=== PATIENT | female | born 1945 | race Caucasian/White ===

== ENCOUNTER → 2022-05-25 11:11 | Outpatient (CLI) | payer MEDICARE, SELFPAY ==
[2022-05-25 13:39] LABS: COVID19 -Nasal RAPID Negative (Negative)
== END ==
PROVIDERS: Referring Provider Orthopaedic Surgery; Visit Provider Orthopaedic Surgery
DX: Z20.822 Contact with and (suspected) exposure to COVID-19 (principal)
CPT/HCPCS: 87635; C9803

== ENCOUNTER 2022-05-27 12:02 | Day surgery (SDC) | payer MEDICARE, SELFPAY ==
[2022-05-20 08:46] VITALS: BMI 43.1
[2022-05-27] VITALS (12 sets, daily range): BP systolic 125–161; BP diastolic 63–75; PULSE 47–61; RESP 12–29; TEMP 35.6–36.8; O2SAT 95–99; BMI 43.1; BMI 44.1
--- NOTE | 2022-05-27 06:00 | DI.RAD.S_ITS ---
PROCEDURE: XR KNEE RT 1TO2V INDICATIONS: total right knee TECHNIQUE: 2 view(s) of the knee acquired. COMPARISON: None. FINDINGS: Bones: Patient is status post knee joint arthroplasty. Hardware components are in expected positions. Visualized bony structures are intact. Soft tissues: Overlying postoperative changes are noted. IMPRESSION: Right knee arthroplasty with expected postoperative changes. Dictated by: Chuck Ellis M.D. on 05/28/2022 at 8:52 Approved by: Chuck Ellis M.D. on 05/28/2022 at 8:53
[2022-05-27] MEDS: VANCOMYCIN 1,000 MG/200 ML PIGGYBACK 200 MG IV (13:18)
--- NOTE | 2022-05-27 14:22 | PM.PREOP ---
Pre-operative Note COVID-19 COVID-19 status: Negative Interval Note History & Physical reviewed/Exam performed by Physician: Yes Changes to H&P: No
[2022-05-27] MEDS: CEFAZOLIN 2 GM/100 ML PREMIX 100 ML IV ×2 (14:38→22:28)
--- NOTE | 2022-05-27 14:38 | PM.OP.1 ---
Operative Date/Time/Diagnoses Date of procedure: 05/27/22 Time of procedure: 14:40 Pre-op diagnosis: Right total knee arthroplasty Post-op diagnosis: same Procedure & Clinicians Procedure: Right total knee arthroplasty Same procedure as scheduled: Yes Indications: The patient has had progressively worsening right knee pain with radiographic changes consistent with arthritis. Non-operative management has failed and the patient has requested total knee replacement. The risks, benefits and alternatives to surgery were discussed with the patient prior to proceeding. Risks discussed included, but were not limited to, failure to relieve pain, stiffness, infection, nerve damage, deep venous thrombosis, pulmonary embolism, stroke, coma, heart attack, permanent paralysis and , as well as the potential need for eventual revision of the prosthetic. Surgeon: Triny Justice Marriage And Family Counselor: Amber Ritter Anesthesia Type: General and Spinal Operative Notes Findings: Severe right knee osteoarthritis, good range of motion, adequate stability, adequate bone Closure Type: primary Specimen(s): none sent Prosthetic devices, grafts, tissues, transplants, or devices: [employer] BCS 2 size 4 femur, size 4 tibia, +9 poly, 32 x 7.5 mm patella Applied: drain(s) Estimated Blood Loss (mL): 250 Blood products transfused: none Tourniquet time (min): 77 Procedure in detail: The patient was seen in the pre-operative area, where the patient identified the right knee as the operative site and this was marked with my initials. The patient received pre-operative antibiotics, and was taken to the operating room and placed on the operative table in the supine position. After satisfactory anesthesia, a time stamp assembler out was performed. The right leg was encircled with a tourniquet about the proximal thigh, and the leg was prepared from the toes to the tourniquet with ChloroPrep in the usual fashion and draped through sterile drapes. The leg was elevated and exsanguinated with Eschmark bandage and the tourniquet inflated to [250] mmHg pressure. The knee was approached through an approximately 20 cm incision centered over the patella and carried into the knee through a medial parapatellar arthrotomy. A portion of the medial and lateral meniscus was resected. Soft tissue was carefully mobilized around the patella the patella was measured with a caliper. Bone was resected from the patella and the patellar height was reconstituted with up an appropriate sized patellar component. A cover was then placed on the patella. A small amount of additional medial and lateral meniscus was resected. The distal femur was cut at 5?. A [+2] cut was used. It looked like an appropriate distal femoral cut and the cut was made without difficulty. An extramedullary guide was used for the tibial cut. 10 mm was resected off the least affected side.The tibia was prepared. The rotation was assessed. The patient was placed in extension residual medial and lateral meniscus as well as any residual bone was carefully resected. [No] additional tibia was resected. Hemostasis was achieved especially posteriorly. Additional local was injected into the posterior capsule. The extension gap was assessed and additional releases for gap balancing were performed as necessary. It was checked with the gap director occupational. The femoral component was trial was placed and the notch was finished. The rotation was assessed and the appropriate size femoral guide was placed on the distal femur and finishing cuts were made. There was no evidence of notching. The anterior, posterior and chamfer cuts were then made. The posterior osteophytes and soft tissues were then removed. The posterior capsule was injected with part of a mixture of 60 ml 0.25% Marcaine mixed with 20 ml Exparel for post operative pain control. The remainder of this mixture was injected into the capsule and subcutaneous tissues during cement curing. The tibial and femoral components were then placed and the knee placed through a range of motion. Range of motion was [0-130], with good stability throughout the range. The trials were then removed, and the tibia was finished. The bone was prepared with pulsatile lavage, and dried with a sponge. Cement was applied and the final prosthetics placed. Excess cement was removed during and after cement curing. A brief Betadine soak was performed. After confirming there was no extruded cement posteriorly, the final tibial insert was placed. The knee was copiously irrigated and the tourniquet deflated. Hemostasis was obtained with the Bovie cautery. A drain was placed and brought out superolaterally. The capsule was closed with interrupted nonabsorbable suture. The subcutaneous layer was closed with barbed sutures, and the skin with a running 3-0 V-Lock suture and skin ghassan. A daryl dressing was applied and the patient was taken to recovery having tolerated the procedure well. Complications: none Post-operative Condition: stable Disposition: Acute Care Plan for aftercare: The patient will be maintained on a standard total knee replacement protocol with weight bearing as tolerated. The patient will receive aspirin and sequential compression devices for DVT prophylaxis. The patient will be discharged home when safe for the home environment.
[2022-05-27] MEDS: TRANEXAMIC ACID 1,000 MG VIAL 2000 MG INJ ×2 (14:55→16:25)
--- NOTE | 2022-05-27 15:08 | SUR.OPER ---
Supine on padded OR bed. Pillow under head, arms secured on padded armboards <90 degree abduction. Safety belt across torso. Non-operative leg secured with tape over blanket over lower leg. Operative leg secured in DeMayo/Florentino/Nathe positioner. Foam padded brace at thigh of operative leg.
[2022-05-27] MEDS: CEFAZOLIN VIAL 1 GM in SODIUM CHLORIDE 0.9% 100 ML IV (15:15)
[2022-05-27] MEDS: BUPIVACAINE LIPOSOME 266 MG/20 ML VIAL INJ (15:16)
[2022-05-27] MEDS: LACTATED RINGERS 1,000 ML 42 ML IV (15:19)
[2022-05-27] MEDS: BUPIVACAINE 0.5% W/ EPI (PF) 30 ML VIAL INJ (15:21)
--- NOTE | 2022-05-27 17:45 | SUR.PHASEI ---
Report called to
--- NOTE | 2022-05-27 18:03 | SUR.PHASEI ---
Patient transferred to the floor on a bed with her walker, cane and belongings bag. Report given to Autumn. VS stable. IV saline locked. HV clamped, NICOLE dressing in place. Patient moving her right toes but denied sensation to her foot.
[2022-05-27] MEDS: ACETAMINOPHEN 325 MG TABLET 650 MG PO (18:18)
[2022-05-27] MEDS: LACTATED RINGERS 1,000 ML 100 ML IV (18:18)
[2022-05-27] MEDS: IBUPROFEN 400 MG TABLET PO ×2 (18:20→21:06)
[2022-05-27] MEDS: ATORVASTATIN 20 MG TABLET 40 MG PO (21:07)
[2022-05-27] MEDS: ASPIRIN EC 81 MG TABLET PO (21:07)
[2022-05-27] MEDS: DOCUSATE 100 MG CAPSULE PO (21:07)
[2022-05-28] MEDS: ACETAMINOPHEN 325 MG TABLET 650 MG PO ×3 (00:10→11:20)
[2022-05-28] MEDS: ONDANSETRON 4 MG/2 ML INJ IV (00:27)
[2022-05-28 01:00] VITALS: BP 136/61; PULSE 49; RESP 17; TEMP 36.3; O2SAT 98
[2022-05-28 04:00] VITALS: BP 163/55; PULSE 46; RESP 17; TEMP 36.2; O2SAT 99
[2022-05-28] MEDS: LACTATED RINGERS 1,000 ML 100 ML IV (05:46)
[2022-05-28] MEDS: LEVOTHYROXINE 100 MCG TABLET PO (05:53)
[2022-05-28] MEDS: CEFAZOLIN 2 GM/100 ML PREMIX 100 ML IV (06:30)
--- NOTE | 2022-05-28 07:57 | PM.DS.1 ---
History of Present Illness History of Present Illness Date Patient Seen: 05/28/22 Time Patient Seen: 07:57 Chief complaint: OPB Narrative: Operative Date/Time/Diagnoses Date of procedure: 05/27/22 Time of procedure: 14:40 Pre-op diagnosis: Right total knee arthroplasty Post-op diagnosis: same Procedure & Clinicians Procedure: Right total knee arthroplasty Same procedure as scheduled: Yes Indications: The patient has had progressively worsening right knee pain with radiographic changes consistent with arthritis. Non-operative management has failed and the patient has requested total knee replacement. The risks, benefits and alternatives to surgery were discussed with the patient prior to proceeding. Risks discussed included, but were not limited to, failure to relieve pain, stiffness, infection, nerve damage, deep venous thrombosis, pulmonary embolism, stroke, coma, heart attack, permanent paralysis and , as well as the potential need for eventual revision of the prosthetic. Surgeon: Triny Justice Flyer Maker: Amber Ritter Anesthesia Type: General and Spinal Operative Notes Findings: Severe right knee osteoarthritis, good range of motion, adequate stability, adequate bone Closure Type: primary Specimen(s): none sent Prosthetic devices, grafts, tissues, transplants, or devices: [employer] BCS 2 size 4 femur, size 4 tibia, +9 poly, 32 x 7.5 mm patella Applied: drain(s) Estimated Blood Loss (mL): 250 Blood products transfused: none Tourniquet time (min): 77 Discharge Providers Provider Discharge Date: 05/28/22 Primary care physician: Reina Granda MD Consults: 05/27/22 06:00 Consult to Anesthesiology Routine Comment: Consulting Provider: Anesthesiologist Reason for consultation: Regional block for post operative pain control 05/27/22 17:55 Consult to Discharge Planning Routine Comment: Consult to Physical Therapy Evaluate & Treat Comment: Physician Instructions: postop TKA protocol Consult to Respiratory Therapy Evaluate & Treat Comment: Physician Instructions: Evaluate and treat Discharge provider: Maira Serrano PA-C Summary Hospital Course Discharge Diagnosis: s/p RIGHT total knee arthroplasty Morbid obesity Hospital Course: Ms Lopez'carine hospital course was unremarkable. On POD# 1 she was feeling well and wanted to go home. She was eating and voiding without difficulty. She has her son and daughter for help at home and has outpt PT set up w/ [facility]. Her pain was well-controlled w/ oral medication. PT evaluated prior to discharge. Exam Vital Signs (past 8 hours): - 05/28/22 01:00 05/28/22 04:00 Temperature 97.4 F L 97.2 F L Pulse Rate 49 L 46 L Respiratory Rate 17 17 Blood Pressure 136/61 163/55 H Pulse Oximetry 98 99 Oxygen Flow Rate 0 0 Oxygen Delivery Method Room Air Oxygen Flow Rate 0 Narrative Exam Narrative: 5/5 strength in hip flexors, quadriceps, hamstrings, DF, PF, EHL on right. Sensation to light touch intact throughout RLE. Calves soft, compressible, nontender and without palpable cords or masses. NICOLE dressing w/ scant bloody drainage, intact and functioning. [facility] Medical History (Updated 05/20/22 @ 09:13 by Shannan Cerrato RN) HLD (hyperlipidemia) HTN (hypertension) Hypothyroidism Neuropathy Osteoarthritis Surgical History (Updated 05/28/22 @ 08:07 by Maira Serrano PA-C) History of hysterectomy (1992) History of nasal surgery Hx of abdominoplasty (1992) Hx of bariatric surgery (1986) Social History household members: children Smoking Status: Former smoker alcohol intake: never Discharge Assessment & Plan Assessment and Plan Assessment: s/p RIGHT total knee arthroplasty Morbid obesity Plan of Treatment: Discharge home, outpt PT, ASA 81 mg BID x 6 weeks for VTE prophylaxis. NPWT dressing d/t morbid obesity. Discharge Plan Discharge Plan Patient Disposition: Home Discharge orders & Medications Discharge Orders: Discharge (Order); Ordered 05/28/22 Ordered By: Maira Serrano Prescriptions: New oxycodone 5 mg Tablet 5 mg PO Q4H PRN (Reason: Pain, Moderate (4-6)) Qty: 60 0RF docusate sodium 100 mg Capsule 100 mg PO BID PRN (Reason: constipation) Qty: 60 2RF aspirin 81 mg Tablet,Delayed Release (Dr/Ec) 81 mg PO BID Qty: 90 0RF ibuprofen 400 mg Tablet 400 mg PO Q4HR PRN (Reason: mild pain (scale score 1-4)) Qty: 120 1RF Continued losartan 50 mg Tablet 100 mg PO QAM atorvastatin 40 mg Tablet 40 mg PO BEDTIME atenolol 100 mg Tablet 100 mg PO QAM acetaminophen 500 mg Tablet 1,000 mg PO BID levothyroxine 100 mcg Tablet 100 mcg PO DAILY Follow up/Referrals: Reina Granda MD [Primary Care Provider] - Triny Justice MD [Physician] - As previously scheduled (Follow up w/ Amber Ritter PA-C, on 06/09/2022 @ 2:40 pm at [facility] office in [place].) Diet/Activity/Treatments Diet: Diet as Tolerated Activity: Walk frequently! Cold/Heat Therapy: Ice to knee as needed for pain. Skin/Wound/Dressing Care Report to your healthcare provider any signs of infection, such as:: chills, fever, night sweats, unusual drainage and unusual redness Dressing: May shower with dressing on; may get battery pack wet, but keep out of direct shower spray. When batteries in 5-7 days, may detach and dispose of battery pack. Leave NICOLE dressing in place until follow up appointment. No bathing or otherwise soaking incision. Visit Report/Discharge Packet Instructions: DI for Knee Replacement Stand Alone Forms: Surgery Discharge Discharge Data Primary Care Provider: Reina Granda Attending Provider: Triny Justice Quality VTE Deep Vein Thrombosis/Pulmonary Embolism Present on Admission: No
[2022-05-28 08:30] VITALS: BP 136/46; PULSE 55; RESP 16; TEMP 36.6; O2SAT 99
[2022-05-28 08:46] LABS: Hematocrit 36.1 % (36-46); Hemoglobin 11.9 g/dL (12.0-16.0)
[2022-05-28 09:24] VITALS: BP 136/46; PULSE 55
[2022-05-28] MEDS: hydrOXYzine pamoate 25 MG CAPSULE PO (09:24)
[2022-05-28] MEDS: ASPIRIN EC 81 MG TABLET PO (09:24)
[2022-05-28] MEDS: LOSARTAN 50 MG TABLET 100 MG PO (09:24)
[2022-05-28] MEDS: DOCUSATE 100 MG CAPSULE PO (09:30)
[2022-05-28] MEDS: IBUPROFEN 400 MG TABLET PO (09:30)
--- NOTE | 2022-05-28 10:14 | PT.IIE ---
Current Diagnoses Unilateral primary osteoarthritis, right knee (05/27/22) Presence of unspecified artificial knee joint (05/27/22) Surgery Performed Operation Date: 05/27/22 14:15 Actual Procedures p Total Knee Arthroplasty(Right) - Triny Justice MD Surgical History (Last Updated 05/20/22 @ 09:13 by Shannan Cerrato, RN) History of hysterectomy (1992) History of nasal surgery Hx of abdominoplasty (1992) Hx of bariatric surgery (1986) Medical History (Last Updated 05/20/22 @ 09:13 by Shannan Cerrato RN) HLD (hyperlipidemia) HTN (hypertension) Hypothyroidism Neuropathy Osteoarthritis Physical Therapy Inpatient Evaluation/Re-Eval M1 PT/OT-IP Prior Functional Status Start: 05/28/22 10:15 Freq: NEEDED Status: Active Protocol: Document 05/28/22 10:14 DLM (Rec: 05/28/22 10:32 DLM [id number]) Medical Review Prior Functional Status Medical History Reviewed Yes Diet/Fluid Consistency Regular Communication WFL Mobility and Gait Independent with 4WW, often leans on elbows due to back pain, uses cane when feeling okay. Her Son helps when going in/out of house. She only goes out to go to appointments at this time due to knee and back pain. Activities of Daily Living and IADL's Family does advanced ADL's. She is independent toileting and dressing. She sits on bench to shower. Prior Functional Level (Other details) Her goal is to be more active when not having knee and back pain Social History Household Members children Living Arrangements House Number of Floors (Floors) One Floor Number of Stairs To Enter/Railing? one step to enter, she uses cane and door jam Home Environment High Toilet,Walk in Shower, Built-In Shower Seat Home Equipment Four Wheel Walker,Straight Cane Employment Status Retired Additional Social History Comment Her Son is there all the time, her Daughter is in town temporarily to help after surgery. M2 PT-IP Current Condition Start: 05/28/22 10:15 Freq: NEEDED Status: Active Protocol: Document 05/28/22 10:14 DLM (Rec: 05/28/22 10:32 DLM [id number]) Physical Therapy Current Condition Current Condition Evaluation Date 05/28/22 Treatment Diagnosis right TKA, impaired mobility/ gait Onset Date 05/27/22 M3 PT-IP Subjective Start: 05/28/22 10:15 Freq: NEEDED Status: Active Protocol: Document 05/28/22 10:14 DLM (Rec: 05/28/22 10:32 DLM [id number]) Subjective Physical Therapy Visit Type Type Initial Evaluation Visit Start Time 09:40 Visit Stop Time 10:14 Total Visit Minutes 34 Number of FUEL CONVERSION TECHNICIAN Visits 0 Physical Therapy Visit Comments Patient Comments she prefers to only take the Tylenol if she can, 7/10 pain in right knee with gait and 0/ 10 pain at rest. Patient Goals discharge home M4 PT-IP Mobility and Gait Start: 05/28/22 10:15 Freq: NEEDED Status: Active Protocol: Document 05/28/22 10:14 DLM (Rec: 05/28/22 10:32 DLM [id number]) PT-Bed Mobility Assessment Supine to Sit Supine to Sit Independent Sit to Supine Sit to Supine Independent Scooting Scooting to Edge of Bed Independent PT-Transfer Assessment Sit to and From Stand Sit to and from Stand Standby Assistance,Use of Upper Extremities Equipment Transfer Assistive Device Gait Belt,4 Wheeled Walker Transfers Transfer Destination Bed,Chair Transfer Technique Stand Step Pivot Transfer Ability Level of Assist Standby Assistance,Use of Upper Extremities Comments Mobility Comments She uses UE's to assist right LE in/out of bed. She tends to lean on elbows with 4WW taller to accommadate this position. Pt agreed to lower handles on 4WW and use her hands on handles today to better manage her knee. Gait Assessment Gait Gait Assistance Required: Standby Assistance Distance (Feet) 40 Able to Maintain Weight Bearing Status Yes During Gait Assistive Devices Assistive Device Gait Belt,4 Wheeled Walker Gait Deviations General Gait Pattern Antalgic,Flexed Trunk Factors Limiting Gait Function Factors Limiting Gait Function Decreased Activity Tolerance, Decreased Strength,Limited Range of Motion,Pain,Poor Balance Comments Gait Comments She demonstrates safe use of the 4WW including use of the breaks. She is able to use her hands on handles with 4WW adjusted. She reports having to bend over her 4WW at home if her back pain increases. Stair Climbing Assessment Evaluation Level of Assist On Stairs Standby Assistance Devices Stair Climbing Assistive Devices Straight Cane,Left Railing Technique/Endurance Stair Climbing Direction Ascend and Descend Stair Climbing Technique Step to Step Number of Steps Climbed 1 Query Text: Stair Climbing Set # Repetitions (reps) 1 PT-Balance Assessment Sitting Balance and Reactions Static Sitting Balance Ability Good Dynamic Sitting Balance Ability Good Standing Balance and Reactions Static Standing Balance Ability Good Dynamic Standing Balance Ability Good Device Used 4WW M5 PT-IP Objective Assessments Start: 05/28/22 10:15 Freq: NEEDED Status: Active Protocol: Document 05/28/22 10:14 DLM (Rec: 05/28/22 10:32 [facility] [id number]) Orientation Orientation/Cognition Level of Alertness Alert Orientation Name,Age,Birthday,Month,Date, Year,Day of Week,Place, Situation Language Function Ability No Deficits Noted Safety Awareness Understands Safety Issues Memory Description No Deficits Noted Gross Range of Motion Upper Extremity ROM Assessment Within Functional Limits Lower Extremity ROM Assessment Right Impaired Impairments pain right knee post-op, tolerating 0 ext in supine, tolerates about 70 degrees flexion seated Strength Upper Extremity Strength Assessment Within Functional Limits Lower Extremity Strength Assessment Right Impaired Hip needs assist to lift LE off bed Knee ext 2+/5 Ankle F 4+/5 Comments Strength Comments pain right knee limits functional strength Coordination Assessment Gross Coordination Gross Coordination WNL Sensation Assessment Sensation Gross Sensation WNL Muscle Tone Muscle Tone WNL Yes M6 PT-IP Treatment Start: 05/28/22 10:15 Freq: NEEDED Status: Active Protocol: Document 05/28/22 10:14 DLM (Rec: 05/28/22 10:32 [facility] [id number]) Physical Therapy Treatment Exercises Exercises Ankle Pumps,Quad Sets,Heel Slides,Straight Leg Raises, Short Arc Quads,Passive Knee Extension Hang,Seated Knee Flexion/Extension Education Education Provided Weight Bearing Status,Post-Op Packet,Safety Other Treatments Other Treatment Performed Her Son and daughter arrived at the end of this visit. Discussed home equipment issues and adjustment to 4WW to manage more upright posture . They verbalize understanding . M7 PT-IP Assessment and Plan Start: 05/28/22 10:15 Freq: NEEDED Status: Active Protocol: Document 05/28/22 10:14 DLM (Rec: 05/28/22 10:32 DL [id number]) PT Summary Assessment and Plan Potential Rehabilitation Potential Good Status of Condition at Evaluation Evolving Summary Impairments Pain,ROM,Strength,Balance,Bed Mobility,Transfers,Gait, Activity Tolerance Assessment Summary Belinda is alert and resting in bed. She is trying to manage her pain with Tylenol today with a desire to limit her narcotic use. She uses marijuana at home. She is able to ambulate safely with the 4WW in her room. She is able to go up and down a step to get in/out of the house. She was able to perform 5-10 reps of each of her LE exercises for TKA. She appears safe to discharge home with help from her family. She has out-pt PT scheduled after discharge. Her nurse was notified of pt's progress this visit. Goals Other Goals training completed this visit Frequency of Treatment Frequency Of Treatment Discharge Treatment Plan Other Recommendations and Next Treatment she appears safe to discharge [facility] today if medically cleared. Training completed this visit Weight Bearing Status Weight Bearing Status Weight Bear as Tolerated Recommendations To Nursing Amount of Assist Needed Standby Assistance Discharge Recommendations PT Discharge Recommendations Home with Assistance, Outpatient PT Equipment Needed for Home Before family looking to get rails or Discharge bedside commode for home toilet Transportation Needs at Discharge Private Vehicle
--- NOTE | 2022-05-28 11:32 | PC.NURSE ---
Addendum entered by Katy Barron R.N. 05/28/22 11:36: She is escorted by w/ty,by PLAYER MANAGER to private vehicle with her daughter at approximately 1100 for discharge home this a.m. Original Note: Pt received lying in bed, A&OX3, VSS, afebrile on RA. Dressing to Knee, C/D/I, tamela wrap digging into her leg and removed. PA at bedside clearing patient for discharge pending PT/OT clearance. Pt reports pain in knee is tolerable and increased with movement but tolerable with prn tylenol and ibuprofen.She declines wanting any oxycodone this a.m. Held a.m. atenolol due to lower dbp and HR 50's. She denies dizziness, n/v. She has a few bites for breakfast, stating decreased appetite. Daughter at bedside this a.m. supportive and per patient she has plenty of help at home with a son living with her. She is cleared by PT, and drain is removed this a.m. She and her daughter verbalize understanding of discharge medications, activity, site care, NICOLE dressing, worsening symtpoms/infection, as well as follow up care. She is escorted by w;
== END 2022-05-28 11:20 | disposition home or self-care (01) ==
LOC: OR 12:03 → AC 12:04
PROVIDERS: PCP Internal Medicine; Referring Provider Orthopaedic Surgery; Visit Provider Orthopaedic Surgery
PROC: 0SRC0JZ Replacement of Right Knee Joint with Synthetic Substitute, Open Approach (ICD-10-PCS; CPT 27447; principal; 2022-05-27 14:15)
DX: M17.0 Bilateral primary osteoarthritis of knee (principal); E66.01 Morbid (severe) obesity due to excess calories; I10 Essential (primary) hypertension; E03.9 Hypothyroidism, unspecified; E78.5 Hyperlipidemia, unspecified; G62.9 Polyneuropathy, unspecified; M51.37 Other intervertebral disc degeneration, lumbosacral region; Z68.41 Body mass index [BMI] 40.0-44.9, adult; Z98.84 Bariatric surgery status; Z87.891 Personal history of nicotine dependence
CPT/HCPCS: 27447; 36415; 73560; 85014; 85018; 97110; 97162; C1776; C1713; C9290; J0690; J1100; J2250; J2405; J2704; J3010

== ENCOUNTER 2022-12-28 11:44 | Day surgery (SDC) | payer MEDICARE, SELFPAY ==
[2022-05-27 18:09] VITALS: BMI 44.1
[2022-12-16 09:24] VITALS: BMI 42.7
[2022-12-28] VITALS (10 sets, daily range): BP systolic 135–188; BP diastolic 48–80; PULSE 40–52; RESP 12–22; TEMP 35.7–36.8; O2SAT 97–100; BMI 42.7
--- NOTE | 2022-12-28 07:28 | DI.RAD.S_ITS ---
PROCEDURE: XR KNEE LT 1TO2V INDICATIONS: prosthesis placement total left knee TECHNIQUE: 2 view(s) of the knee acquired. COMPARISON: [facility], [facility], XR KNEE RT 1TO2V, 05/27/2022, 17:20. FINDINGS: Bones: Patient is status post knee joint arthroplasty. Hardware components are in expected positions. Visualized bony structures are intact. Soft tissues: Overlying postoperative changes are noted. IMPRESSION: Status post knee arthroplasty changes. Dictated by: Ainsley Jarvis M.D. on 12/28/2022 at 16:41 Approved by: Ainsley Jarvis M.D. on 12/28/2022 at 16:41
[2022-12-28] MEDS: PREGABALIN 75 MG CAPSULE PO (12:13)
[2022-12-28] MEDS: CELECOXIB 200 MG CAPSULE PO (12:13)
[2022-12-28] MEDS: ACETAMINOPHEN 325 MG TABLET 975 MG PO (12:14)
[2022-12-28 12:24] LABS: COVID19 -Nasal RAPID Negative (Negative)
[2022-12-28] MEDS: LACTATED RINGERS 1,000 ML 42 ML IV ×2 (12:46→15:35)
[2022-12-28] MEDS: VANCOMYCIN 1,000 MG/200 ML PIGGYBACK 200 MG IV (12:55)
--- NOTE | 2022-12-28 13:44 | PM.PREOP ---
Pre-operative Note Interval Note History & Physical reviewed/Exam performed by Physician: Yes Changes to H&P: No
--- NOTE | 2022-12-28 13:44 | PM.OP.1 ---
Operative Date/Time/Diagnoses Date of procedure: 12/28/22 Time of procedure: 14:00 Pre-op diagnosis: Left knee osteoarthritis severe Procedure & Clinicians Procedure: Left total knee arthroplasty Same procedure as scheduled: Yes Indications: The patient has had progressively worsening left knee pain with radiographic changes consistent with arthritis. Non-operative management has failed and the patient has requested total knee replacement. The risks, benefits and alternatives to surgery were discussed with the patient prior to proceeding. Risks discussed included, but were not limited to, failure to relieve pain, stiffness, infection, nerve damage, deep venous thrombosis, pulmonary embolism, stroke, coma, heart attack, permanent paralysis and , as well as the potential need for eventual revision of the prosthetic. Surgeon: Triny Justice Battery Container Tester: Duarte Amin Click Yes if Unassisted: Yes Anesthesia Type: General Operative Notes Findings: Severe left knee osteoarthritis, adequate stability Closure Type: primary Specimen(s): none sent Prosthetic devices, grafts, tissues, transplants, or devices: Justice [employer] Nephew Patriciopicabo BCS 2 size 4 femur, size 4 tibia, +9 poly, 32 x 7.5 mm patella Estimated Blood Loss (mL): 250 Blood products transfused: none Tourniquet time (min): 63 Procedure in detail: The patient was seen in the pre-operative area, where the patient identified the left knee as the operative site and this was marked with my initials. The patient received pre-operative antibiotics, and was taken to the operating room and placed on the operative table in the supine position. After satisfactory anesthesia, a director multimedia out was performed. The left leg was encircled with a tourniquet about the proximal thigh, and the leg was prepared from the toes to the tourniquet with ChloroPrep in the usual fashion and draped through sterile drapes. The leg was elevated and exsanguinated with Eschmark bandage and the tourniquet inflated to [250] mmHg pressure. The knee was approached through an approximately 18 cm incision centered over the patella and carried into the knee through a medial parapatellar arthrotomy. A portion of the medial and lateral meniscus was resected. Soft tissue was carefully mobilized around the patella the patella was measured with a caliper. Bone was resected from the patella and the patellar height was reconstituted with up an appropriate sized patellar component. A cover was then placed on the patella. A small amount of additional medial and lateral meniscus was resected. The distal femur was cut at 5?. A [+2] cut was used. It looked like an appropriate distal femoral cut and the cut was made without difficulty. An extramedullary guide was used for the tibial cut. 10 mm was resected off the least affected side.The tibia was prepared. The rotation was assessed. The patient was placed in extension residual medial and lateral meniscus as well as any residual bone was carefully resected. [No] additional tibia was resected. Hemostasis was achieved especially posteriorly. Additional local was injected into the posterior capsule. The extension gap was assessed and additional releases for gap balancing were performed as necessary. It was checked with the gap pad assembler. The femoral component was trial was placed and the notch was finished. The rotation was assessed and the appropriate size femoral guide was placed on the distal femur and finishing cuts were made. There is no evidence of notching. The anterior, posterior and chamfer cuts were then made. The posterior osteophytes and soft tissues were then removed. The posterior capsule was injected with part of a mixture of 60 ml 0.25% Marcaine mixed with 20 ml Exparel for post operative pain control. The remainder of this mixture was injected into the capsule and subcutaneous tissues during cement curing.l tibial and femoral components were then placed and the knee placed through a range of motion. Range of motion was [0-130], with good stability throughout the range. The trials were then removed, and the tibia was finished. The bone was prepared with pulsatile lavage, and dried with a sponge. Cement was applied and the final prosthetics placed. Excess cement was removed during and after cement curing. A brief Betadine soak was performed. After confirming there was no extruded cement posteriorly, the final tibial insert was placed. The knee was copiously irrigated and the tourniquet deflated. Hemostasis was obtained with the Bovie cautery. A drain was placed and brought out superolaterally. The capsule was closed with interrupted nonabsorbable suture. The subcutaneous layer was closed with barbed sutures, and the skin with a running 3-0 V-Lock suture and skin ghassan. A daryl dressing was applied and the patient was taken to recovery having tolerated the procedure well. Complications: none Post-operative Condition: stable Disposition: Acute Care Plan for aftercare: The patient will be maintained on a standard total knee replacement protocol with weight bearing as tolerated. The patient will receive aspirin and sequential compression devices for DVT prophylaxis. The patient will be discharged home when safe for the home environment.
[2022-12-28] MEDS: CEFAZOLIN 2 GM/100 ML PREMIX 100 ML IV ×2 (13:58→21:47)
[2022-12-28] MEDS: TRANEXAMIC ACID 1,000 MG VIAL 1000 MG INJ ×2 (14:16→15:28)
[2022-12-28] MEDS: BUPIVACAINE LIPOSOME 266 MG/20 ML VIAL INJ (14:40)
[2022-12-28] MEDS: BUPIVACAINE 0.25% (PF) 60 ML, EPINEPHrine 0.3 MG INJ (14:42)
[2022-12-28] MEDS: BUPIVACAINE 0.25% (PF) VIAL 30 ML INJ (14:43)
[2022-12-28] MEDS: LACTATED RINGERS 1,000 ML 100 ML IV (17:00)
--- NOTE | 2022-12-28 17:05 | PT-IP ANOTE ---
Checked on pt but pt had no LE AROM yet so unable to mobilize. Check in AM.
[2022-12-28] MEDS: ACETAMINOPHEN 325 MG TABLET 650 MG PO ×2 (18:22→23:57)
[2022-12-28] MEDS: IBUPROFEN 400 MG TABLET PO ×2 (18:22→21:47)
[2022-12-28] MEDS: NYSTATIN SUSP 500,000 UNIT/5 ML UDC 500000 UNIT PO (20:29)
[2022-12-28] MEDS: DOCUSATE 100 MG CAPSULE PO (20:29)
[2022-12-28] MEDS: ASPIRIN EC 81 MG TABLET PO (20:29)
[2022-12-28] MEDS: ATORVASTATIN 20 MG TABLET 40 MG PO (20:29)
[2022-12-28] MEDS: GABAPENTIN 100 MG CAPSULE PO (20:29)
--- NOTE | 2022-12-28 22:47 | PC.NURSE ---
Patient is alert and oriented. Breath sounds CTA with RA sat of 100%. HRR but bradycardic with rate in 40's which she reports is normal for her. BP elevated at 167/51. Denies nausea. BT hypoactive and has not yet passed flatus. Up to BSC and voided 600cc at start of shift; denies dysuria. Is able to turn herself in bed. Out of bed with walker and 1 assist. NICOLE dressing to left leg is CDI and functioning; wrapped with tamela. Has chronic neuropathy in bilateral feet (extends up to ankle on left) left > right. Wearing calf SCD on right leg only. Denies pain. Fall risk score is moderate and bed alarm is activated.
[2022-12-28] MEDS: TRAMADOL 50 MG TABLET PO (23:06)
[2022-12-29 01:00] VITALS: BP 151/54; PULSE 45; RESP 18; TEMP 36.3; O2SAT 96
[2022-12-29] MEDS: IBUPROFEN 400 MG TABLET PO ×3 (01:31→09:24)
[2022-12-29] MEDS: LACTATED RINGERS 1,000 ML 100 ML IV (02:02)
[2022-12-29 05:00] VITALS: BP 153/63; PULSE 50; RESP 18; TEMP 36.3; O2SAT 97
[2022-12-29] MEDS: ACETAMINOPHEN 325 MG TABLET 650 MG PO (05:46)
[2022-12-29] MEDS: CEFAZOLIN 2 GM/100 ML PREMIX 100 ML IV (05:47)
[2022-12-29] MEDS: LEVOTHYROXINE 112 MCG TABLET PO (05:56)
[2022-12-29 06:42] LABS: Hematocrit 33.9 % (36-46); Hemoglobin 11.2 g/dL (12.0-16.0)
--- NOTE | 2022-12-29 07:52 | P.DS_ITS ---
History of Present Illness History of Present Illness Date Patient Seen: 12/29/22 Time Patient Seen: 07:52 Chief complaint: OPB Narrative: Operative Date/Time/Diagnoses Date of procedure: 12/28/22 Time of procedure: 14:00 Pre-op diagnosis: Left knee osteoarthritis severe Procedure & Clinicians Procedure: Left total knee arthroplasty Same procedure as scheduled: Yes Indications: The patient has had progressively worsening left knee pain with radiographic changes consistent with arthritis. Non-operative management has failed and the patient has requested total knee replacement. The risks, benefits and alternatives to surgery were discussed with the patient prior to proceeding. Risks discussed included, but were not limited to, failure to relieve pain, stiffness, infection, nerve damage, deep venous thrombosis, pulmonary embolism, stroke, coma, heart attack, permanent paralysis and , as well as the potential need for eventual revision of the prosthetic. Surgeon: Triny Justice Parallel Computing Software Engineer: Duarte Amin Click Yes if Unassisted: Yes Anesthesia Type: General Operative Notes Findings: Severe left knee osteoarthritis, adequate stability Closure Type: primary Specimen(s): none sent Prosthetic devices, grafts, tissues, transplants, or devices: [employer]hew Patricioney BCS 2 size 4 femur, size 4 tibia, +9 poly, 32 x 7.5 mm patella Estimated Blood Loss (mL): 250 Blood products transfused: none Tourniquet time (min): 63 Discharge Providers Provider Discharge Date: 12/29/22 Primary care physician: Reina Granda MD Consults: 12/28/22 07:28 Consult to Anesthesiology Routine Comment: Consulting Provider: Anesthesiologist Reason for consultation: Regional block for post operative pain control 12/28/22 16:31 Consult to Discharge Planning Routine Comment: Consult to Physical Therapy Evaluate & Treat Comment: Physician Instructions: postop TKA protocol Discharge provider: Maira Serrano PA-C Summary Hospital Course Discharge Diagnosis: Left knee osteoarthritis, s/p left total knee arthroplasty Hospital Course: Ms Lopez's hospital course was unremarkable. On POD# 1, she was feeling well and wanted to go home. She was eating and voiding without difficulty. She had not yet been evaluated by PT at the time of my visit, but she was OOB without difficulty. Her pulse was low overnight and I held her morning dose of atenolol. Exam Vital Signs (past 8 hours): - 12/29/22 01:00 12/29/22 05:00 Temperature 97.3 F L 97.4 F L Pulse Rate 45 L 50 L Respiratory Rate 18 18 Blood Pressure 151/54 H 153/63 H Pulse Oximetry 96 97 Oxygen Flow Rate 0 0 Oxygen Delivery Method Room Air Oxygen Flow Rate 0 Narrative Exam Narrative: 5/5 strength in hip flexors, quadriceps, hamstrings, DF, PF, EHL on the left. Sensation to light touch intact throughout LLE. Calves soft, compressible, nontender and without palpable cords or masses. NICOLE dressing functioning, CDI. 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 Pt has post-op meds including tramadol, APAP, and IBPN at home. ASA 81mg BID x 6 weeks for VTE prophylaxis. Outpt PT, f/u in office in 2 weeks. Discharge Plan Discharge Plan Patient Disposition: Home Discharge orders & Medications Discharge Orders: Discharge (Order); Ordered 12/29/22 Ordered By: Maira Serrano Prescriptions: Continued losartan 50 mg Tablet 100 mg PO QAM atorvastatin 40 mg Tablet 40 mg PO BEDTIME atenolol 100 mg Tablet 100 mg PO QAM acetaminophen 500 mg Tablet 500 mg PO BID levothyroxine 100 mcg Tablet 112 mcg PO DAILY aspirin 81 mg Tablet,Delayed Release (Dr/Ec) 81 mg PO BID Qty: 90 0RF docusate sodium 100 mg Capsule 100 mg PO BID PRN (Reason: constipation) Qty: 60 2RF ibuprofen 400 mg Tablet 400 mg PO Q4HR PRN (Reason: mild pain (scale score 1-4)) Qty: 120 1RF gabapentin 100 mg Capsule 100 mg PO BEDTIME cephalexin 500 mg Capsule 500 mg PO BID Follow up/Referrals: Reina Granda MD [Primary Care Provider] - Triny Justice MD [Physician] - As previously scheduled (Follow up w/ Maira Serrano PA-C, on 01/07/2023 @ 11:00 at [facility] in [place].) Diet/Activity/Treatments Diet: Diet as Tolerated Activity: Walk frequently! Cold/Heat Therapy: Ice to knee as needed for pain. Skin/Wound/Dressing Care Report to your healthcare provider any signs of infection, such as:: chills, fever, night sweats, unusual drainage and unusual redness Dressing: May remove SANTY wrap and shower on 12/31/2022. Leave NICOLE dressing in place until follow up in office. Battery light will start flashing in 5-7 days; when that happens, may cut off battery pack and dispose of it. No bathing or otherwise soaking incision. Call the office if the dressing becomes saturated inside. Visit Report/Discharge Packet Instructions: DI for Knee Replacement Stand Alone Forms: Patient Portal/API, Surgery Discharge Discharge Data Primary Care Provider: Reina Granda Attending Provider: Triny Justice Quality VTE Deep Vein Thrombosis/Pulmonary Embolism Present on Admission: No
[2022-12-29 08:35] VITALS: BP 165/58; PULSE 44; RESP 15; O2SAT 98
--- NOTE | 2022-12-29 08:37 | PT.IIE ---
Current Diagnoses Unilateral primary osteoarthritis, right knee (12/28/22) Surgery Performed Operation Date: 12/28/22 13:45 Actual Procedures p Total Knee Arthroplasty(Left) - Triny Justice MD Surgical History (Last Updated 12/16/22 @ 09:47 by Shannan Cerrato, RN) History of hysterectomy (1992) History of nasal surgery History of total right knee replacement (05/27/22) Hx of abdominoplasty (1992) Hx of bariatric surgery (1986) Medical History (Last Updated 05/20/22 @ 09:13 by Shannan Cerrato RN) HLD (hyperlipidemia) HTN (hypertension) Hypothyroidism Neuropathy Osteoarthritis Physical Therapy Inpatient Evaluation/Re-Eval M1 PT/OT-IP Prior Functional Status Start: 12/29/22 08:31 Freq: NEEDED Status: Active Protocol: Document 12/29/22 08:31 [facility] (Rec: 12/29/22 08:37 [facility] [id number]) Medical Review Prior Functional Status Medical History Reviewed Yes Diet/Fluid Consistency Regular Communication wnl Mobility and Gait INDEP W/4WW Activities of Daily Living and IADL's indep w/ADLs,d hu but son has been staying w/her recently and driving her around Social History Household Members children Living Arrangements House Number of Floors (Floors) One Floor Number of Stairs To Enter/Railing? 1 [place] Home Environment High Toilet,Walk in Shower, Built-In Shower Seat Home Equipment Four Wheel Walker,Straight Cane,Microstrategy Architect Developer,Grab Bars Near Toilet,Grab Bars In Shower Employment Status Retired Additional Social History Comment son is living w/her to care for her and will be available the entire time. M2 PT-IP Current Condition Start: 12/29/22 08:31 Freq: NEEDED Status: Active Protocol: Document 12/29/22 08:31 [facility] (Rec: 12/29/22 08:37 [facility] [id number]) Physical Therapy Current Condition Current Condition Evaluation Date 12/29/22 Treatment Diagnosis L TKA Onset Date 12/28/22 M3 PT-IP Subjective Start: 12/29/22 08:31 Freq: NEEDED Status: Active Protocol: Document 12/29/22 08:31 [facility] (Rec: 12/29/22 08:37 [facility] [id number]) Subjective Physical Therapy Visit Type Type Initial Evaluation Visit Start Time 07:35 Visit Stop Time 08:04 Total Visit Minutes 29 Number of CHAR FILTER TANK TENDER Visits 0 Physical Therapy Visit Comments Patient Goals to go home today Therapy Pain Assessment Pain When Pain Assessed During Mobility Pain Present Pain Present Pain Reported Location Left Knee Pain Management Techniques Re-positioning,Timing of Activity with Medications M4 PT-IP Mobility and Gait Start: 12/29/22 08:31 Freq: NEEDED Status: Active Protocol: Document 12/29/22 08:31 [facility] (Rec: 12/29/22 08:37 [email or web address]) PT-Bed Mobility Assessment Supine to Sit Supine to Sit Independent Scooting Scooting to Edge of Bed Independent PT-Transfer Assessment Sit to and From Stand Sit to and from Stand Standby Assistance,Use of Upper Extremities Equipment Transfer Assistive Device Gait Belt,4 Wheeled Walker Orthotic/Prosthetic Devices or Brace: No Gait Assessment Gait Gait Assistance Required: Standby Assistance Distance (Feet) 225 Able to Maintain Weight Bearing Status Yes During Gait Assistive Devices Assistive Device Gait Belt,4 Wheeled Walker Orthotic/Prosthetic Devices or Brace: No Gait Deviations General Gait Pattern Antalgic,Flexed Trunk Factors Limiting Gait Function Factors Limiting Gait Function Decreased Strength,Limited Range of Motion,Pain,Poor Balance Stair Climbing Assessment Evaluation Level of Assist On Stairs Contact Guard Assistance Devices Stair Climbing Assistive Devices Straight Cane,Four Wheel Walker Technique/Endurance Stair Climbing Direction Ascend and Descend Comments Stair Climbing Comments up one step to bar as pt just has to do step into house to 4WW (4WW will not fit on our platform) w/son holding it w/ SPC (pt used cane. Descent SBA to 4WW PT-Balance Assessment Sitting Balance and Reactions Static Sitting Balance Ability Normal Dynamic Sitting Balance Ability Normal Standing Balance and Reactions Static Standing Balance Ability Good Dynamic Standing Balance Ability Fair Device Used 4WW M5 PT-IP Objective Assessments Start: 12/29/22 08:31 Freq: NEEDED Status: Active Protocol: Document 12/29/22 08:31 [facility] (Rec: 12/29/22 08:37 [email or web address]) Orientation Orientation/Cognition Level of Alertness Alert Language Function Ability No Deficits Noted Safety Awareness Understands Safety Issues Memory Description No Deficits Noted Gross Range of Motion Lower Extremity ROM Assessment Left Impaired Strength Lower Extremity Strength Assessment Left Impaired M6 PT-IP Treatment Start: 12/29/22 08:31 Freq: NEEDED Status: Active Protocol: Document 12/29/22 08:31 [facility] (Rec: 12/29/22 08:37 [facility] [id number]) Physical Therapy Treatment Exercises Exercises Ankle Pumps Education Education Provided Precautions,Weight Bearing Status,Post-Op Packet,Safety Other Treatments Other Treatment Performed verbal review of all exercises M7 PT-IP Assessment and Plan Start: 12/29/22 08:31 Freq: NEEDED Status: Active Protocol: Document 12/29/22 08:31 [facility] (Rec: 12/29/22 08:37 [facility] [id number]) PT Summary Assessment and Plan Potential Rehabilitation Potential Excellent Status of Condition at Evaluation Evolving Summary Impairments Pain,ROM,Strength,Balance,Tone ,Cognition,Transfers,Gait, Activity Tolerance Assessment Summary Pt presents day 1 s/p L TKA w/ good pain controla nd good mobility. She was able stand from bed and toilet SBA and was indep w/toilieting. She did well w/4WW and will have son at home to help. She is familar w/all exercises from prior PT on R knee and is very motivated to go home. She has OP PT set up and was SBA w/ all activities and feels confident about going home. At this time, pt is cleared for mobility aspect for DC home and can go home w/son once medically cleared. Frequency of Treatment Frequency Of Treatment Discharge Treatment Plan Physical Therapy Treatment Plan Bed Mobility Training,Transfer Training,Gait Training, Therapeutic Exercise,Post Op Education Weight Bearing Status Weight Bearing Status Weight Bear as Tolerated Recommendations To Nursing Amount of Assist Needed Standby Assistance Discharge Recommendations PT Discharge Recommendations Home with Assistance, Outpatient PT Transportation Needs at Discharge Private Vehicle
[2022-12-29] MEDS: ASPIRIN EC 81 MG TABLET PO (09:23)
[2022-12-29] MEDS: LOSARTAN 50 MG TABLET 100 MG PO (09:23)
[2022-12-29] MEDS: TRAMADOL 50 MG TABLET PO (09:23)
[2022-12-29] MEDS: NYSTATIN SUSP 500,000 UNIT/5 ML UDC 500000 UNIT PO (09:23)
[2022-12-29] MEDS: DOCUSATE 100 MG CAPSULE PO (09:24)
--- NOTE | 2022-12-29 13:32 | PC.NURSE ---
Discharge: Pt feels ready to d/c to home. Seen by PA and given discharge instructions. Seen by PT and passed and can go home. Is following her total knee precautions. Takes fluids and diet w/out problems. Is voiding without diff. Po meds are effective for pain, understands her anesth may wear off the next couple of days and she may need more medication then. Reviewed d/c packet, questions answered. Has rx at home already. PA called as pt has thrush and was told she would get script for nystatin at home. MELODY Rao also reported she is to resume her atenolol tomorrow. Pt d/c to home via auto w/dtr.
== END 2022-12-29 11:30 | disposition home or self-care (01) ==
LOC: OR 11:46 → AC 11:46
PROVIDERS: PCP Internal Medicine; Referring Provider Orthopaedic Surgery; Visit Provider Orthopaedic Surgery
PROC: 0SRD0JZ Replacement of Left Knee Joint with Synthetic Substitute, Open Approach (ICD-10-PCS; CPT 27447; principal; 2022-12-28 13:45)
DX: M17.12 Unilateral primary osteoarthritis, left knee (principal); E66.01 Morbid (severe) obesity due to excess calories; Z68.41 Body mass index [BMI] 40.0-44.9, adult
CPT/HCPCS: 27447; 36415; 73560; 85014; 85018; 87635; 97162; 97535; C1776; C9803; C9290; J0171; J0690; J1100; J2405; J2704; J3010; J3490